=== PATIENT | female | born 1990 | race Caucasian/White ===

== ENCOUNTER 2016-05-11 21:34 | Emergency (ER) | payer OTHER ==
[2016-05-11 21:42] VITALS: BP 147/75
[2016-05-11] MEDS ORDERED: Ibuprofen TAB* 600 MG PO ONE (22:14)
--- NOTE | 2016-05-11 22:29 | ED ---
Lower Extremity - HPI Summary HPI Summary: Pt here w/ Lt toe injury earlier tonight. 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 She has pain in the 3rd, 4th and 5th toes now - worse w/ walking. Denies numbness. No other injuries to report. Has not taken anything for pain. - History of Current Complaint Chief Complaint: EDExtremityLower Stated Complaint: LT FOOT INJURY Time Seen by Provider: 05/11/16 22:14 Hx Obtained From: Patient Hx Last Menstrual Period: Few months - PCOS Pain Intensity: 6 - Allergies/Home Medications Allergies/Adverse Reactions: Allergies Allergy/AdvReac Type Severity Reaction Status Date / Time Penicillins Allergy Unknown Unknown Verified 05/11/16 21:40 Reaction Details Blueberry Flavor Allergy Rash Verified 05/11/16 21:40 Coconut Flavor Allergy Nausea And Verified 05/11/16 21:40 Vomiting PMH/Surg Hx/FS Hx/Imm Hx Previously Healthy: Yes Endocrine/Hematology History: Denies: Hx Anticoagulant Therapy, Hx Blood Disorders, Hx Diabetes, Hx Thyroid Disease, Hx Unexplained Bleeding, Hx Coagulopothy Cardiovascular History: Denies: Hx Congestive Heart Failure, Hx Hypertension Respiratory History: Reports: Hx Asthma Denies: Hx Chronic Obstructive Pulmonary Disease (COPD) GI History: Denies: Hx Ulcer, Other GI Disorders History: Reports: Other Problems/Disorders - PCOS Denies: Hx Renal Disease Psychiatric History: Reports: Hx Anxiety, Hx Post Traumatic Stress Disorder - Surgical History Surgery Procedure, Year, and Place: knee surgery age 4. skin bubble removed from lip 2010. wisdom teeth pulled - Immunization History Date of Tetanus Vaccine: Unk Date of Influenza Vaccine: 12/02 Infectious Disease History: No Infectious Disease History: Denies: Hx Clostridium Difficile, Hx Hepatitis, Hx Human Immunodeficiency Virus (HIV), Hx of Known/Suspected MRSA, Hx Shingles, Hx Tuberculosis, Hx Known/ Suspected VRE, Hx Known/Suspected VRSA, History Other Infectious Disease, Traveled Outside the [place] in Last 30 Days - Family History Known Family History: Positive: Hypertension Negative: Cardiac Disease, Diabetes - Social History Occupation: Employed Part-time Lives: With Family Alcohol Use: Rare Hx Substance Use: No Substance Use Type: Reports: None Smoking Status (MU): Current Every Day Smoker Type: Cigarettes Amount Used/How Often: 1/2 ppd Length of Time of Smoking/Using Tobacco: since age 17 yo Review of Systems Positive: no symptoms reported Positive: Decreased ROM - see HPI Skin: Other - skin is red over cuticle areas Negative: Weakness, Paresthesia, Numbness Psychological: Normal All Other Systems Reviewed And Are Negative: Yes Physical Exam Triage Information Reviewed: Yes Vital Signs On Initial Exam: Initial Vitals Temp Pulse Resp BP Pulse Ox 97.3 F 96 18 147/75 100 05/11/16 21:38 05/11/16 21:38 05/11/16 21:38 05/11/16 21:38 05/11/16 21:38 Vital Signs Reviewed: Yes Appearance: Positive: Well-Appearing, No Pain Distress, Obese Skin: Positive: Warm, Dry - line of erythema over cuticles of 3rd, 4th and 5th toes on Lt foot - no jose cruz bleeding or ecchymosis Head/Face: Positive: Normal Head/Face Inspection Eyes: Positive: Normal, EOMI ENT: Positive: Hearing grossly normal, Pharynx normal Respiratory/Lung Sounds: Positive: Breath Sounds Present Cardiovascular: Positive: Normal, Pulses are Symmetrical in both Upper and Lower Extremities Musculoskeletal: Positive: Limited @ - Toes on Lt foot d/t pain Neurological: Positive: Normal, Sensory/Motor Intact, Alert, Oriented to Person Place, Time, CN Intact II-III Psychiatric: Positive: Normal Diagnostics - Vital Signs Vital Signs Temp Pulse Resp BP Pulse Ox 05/11/16 21:38 97.3 F 96 18 147/75 100 - Laboratory Lab Statement: Any lab studies that have been ordered have been reviewed, and results considered in the medical decision making process. Lower Extremity Course/Dx - Diagnoses Provider Diagnoses: Contusion of left foot including toes Discharge - Discharge Plan Condition: Stable Disposition: HOME Patient Education Materials: Foot Contusion (ED) Forms: *Work Release Referrals: Abdi Chappell MD [Primary Care Provider] - Additional Instructions: Rest, ice, elevate your foot You may take ibuprofen with food for pain and swelling Wear your stiff soled shoe until toe pain resolves. Follow-up with PCP in 1-2 weeks if symptoms persist
--- NOTE | 2016-05-11 22:44 | RAD ---
Indication: Crush injury to the third through fifth toes of the LEFT foot. Comparison: None. Technique: AP and lateral views RIGHT foot. REPORT AND IMPRESSION: Normal articular alignment. Negative for fracture. Mild forefoot soft tissue swelling.
== END 2016-05-11 23:28 | disposition home or self-care (01) ==
LOC: ED 21:34
DX: S90.32XA Contusion of left foot, initial encounter (principal); W22.8XXA Striking against or struck by other objects, initial encounter; Y93.9 Activity, unspecified; Y92.9 Unspecified place or not applicable; F17.210 Nicotine dependence, cigarettes, uncomplicated
CPT/HCPCS: 99281; A9270-GY

== ENCOUNTER 2016-09-28 08:23 | Emergency (ER) | payer OTHER ==
[2016-09-28] MEDS ORDERED: Albuterol/Ipratropium NEB.SOL* Albuterol 2.5 MG/Ipratropium 0.5 MG 3 ML INH ONE (08:45)
[2016-09-28] MEDS ORDERED: predniSONE TAB* 20 MG PO ONE (08:45)
--- NOTE | 2016-09-28 08:49 | ED ---
Respiratory - HPI Summary HPI Summary: 26F presents with asthma attack today. She states that she woke up having issues but would not take her inhaler because would not take it because it was out of date. She states that she started to cough because of it and then she coughed up blood. She states she also has a fever. She has not seen her primary in a while. She denies any chest pain. She states that is is chest tightness rather than SOB. - History of Current Complaint Chief Complaint: EDGeneral Stated Complaint: FEVER/COUGHING UP BLOOD Time Seen by Provider: 09/28/16 08:34 Pain Intensity: 0 Sputum Amount: None - Allergy/Home Medications Allergies/Adverse Reactions: Allergies Allergy/AdvReac Type Severity Reaction Status Date / Time Penicillins Allergy Unknown Unknown Verified 05/11/16 21:40 Reaction Details Blueberry Flavor Allergy Rash Verified 05/11/16 21:40 Coconut Flavor Allergy Nausea And Verified 05/11/16 21:40 Vomiting PMH/Surg Hx/FS Hx/Imm Hx Endocrine/Hematology History: Denies: Hx Anticoagulant Therapy, Hx Blood Disorders, Hx Diabetes, Hx Thyroid Disease, Hx Unexplained Bleeding Cardiovascular History: Denies: Hx Congestive Heart Failure, Hx Hypertension Respiratory History: Reports: Hx Asthma Denies: Hx Chronic Obstructive Pulmonary Disease (COPD) GI History: Denies: Hx Ulcer, Other GI Disorders History: Reports: Other Problems/Disorders - PCOS Denies: Hx Renal Disease Psychiatric History: Reports: Hx Anxiety, Hx Post Traumatic Stress Disorder - Surgical History Surgery Procedure, Year, and Place: knee surgery age 4. skin bubble removed from lip 2010. wisdom teeth pulled - Immunization History Date of Tetanus Vaccine: Unk Date of Influenza Vaccine: 12/02 Infectious Disease History: No Infectious Disease History: Denies: Hx Clostridium Difficile, Hx Hepatitis, Hx Human Immunodeficiency Virus (HIV), Hx of Known/Suspected MRSA, Hx Shingles, Hx Tuberculosis, Hx Known/ Suspected VRE, Hx Known/Suspected VRSA, History Other Infectious Disease, Traveled Outside the [place] in Last 30 Days - Family History Known Family History: Positive: Hypertension Negative: Cardiac Disease, Diabetes - Social History Alcohol Use: Rare Hx Substance Use: No Substance Use Type: Reports: None Smoking Status (MU): Current Every Day Smoker Type: Cigarettes Amount Used/How Often: 1/2 ppd Length of Time of Smoking/Using Tobacco: since age 17 yo Review of Systems Positive: Fever Negative: Chest Pain Positive: Shortness Of Breath, Cough Negative: Abdominal Pain All Other Systems Reviewed And Are Negative: Yes Physical Exam Triage Information Reviewed: Yes Vital Signs On Initial Exam: Initial Vitals Temp Pulse Resp BP Pulse Ox 97.5 F 100 18 135/70 97 09/28/16 08:25 09/28/16 08:25 09/28/16 08:25 09/28/16 08:25 09/28/16 08:25 Vital Signs Reviewed: Yes Appearance: Positive: Well-Appearing Skin: Positive: Warm, Dry Head/Face: Positive: Normal Head/Face Inspection Eyes: Positive: Normal, EOMI, RAFAL, Conjunctiva Clear ENT: Positive: Normal ENT inspection, Pharynx normal, TMs normal Neck: Positive: Supple, Nontender, No Lymphadenopathy Respiratory/Lung Sounds: Positive: Clear to Auscultation, Breath Sounds Present , Other - neg egophony Cardiovascular: Positive: Normal, RRR Diagnostics - Vital Signs Vital Signs Temp Pulse Resp BP Pulse Ox 09/28/16 08:36 20 09/28/16 08:31 97.5 F 100 18 135/70 97 09/28/16 08:25 97.5 F 100 18 135/70 97 - Laboratory Lab Statement: Any lab studies that have been ordered have been reviewed, and results considered in the medical decision making process. - Radiology chest Xray Interpretation: No Acute Changes Radiology Interpretation Completed By: Radiologist Disposition - Course Course Of Treatment: 26F presents with asthma attack today. She states that she woke up having issues but would not take her inhaler because would not take it because it was out of date. She states that she started to cough because of it and then she coughed up blood. She states she also has a fever. She has not seen her primary in a while. She denies any chest pain. She states that is is chest tightness rather than SOB. on exam lungs CTA. gave neb treatment and chest tightness resolved. chest xray normal. gave script for inhaler and steriod. told to follow up with primary. patient understands and agrees with plan. - Differential Dx - Cardiopulmonary Differential Diagnoses - Cardiopulmonary: Asthma, Bronchitis, Lower Resp Infection - Diagnoses Provider Diagnoses: Asthma exacerbation, Cough Discharge - Discharge Plan Condition: Good Disposition: HOME Prescriptions: Albuterol HFA INHALER* [Ventolin HFA Inhaler*] 1 puff INH Q6H PRN #1 mdi PRN Reason: Sob/Wheezing predniSONE TAB* [Deltasone TAB*] 40 mg PO DAILY #8 tab Patient Education Materials: Asthma (ED) Forms: *Work Release Referrals: Abdi Chappell MD [Primary Care Provider] - Additional Instructions: Use inhaler up to two puffs every 4 hours for cough and wheezing Take steroid once a day for 4 more days starting tomorrow 5 days Take Tylenol or ibuprofen for pain every 6 hours Return to ED if develop severe shortness of breath or any new or worsening symptoms
--- NOTE | 2016-09-28 09:34 | RAD ---
Indication: Cough, fever. 2 views the chest including dual energy PA views demonstrate no mediastinal shift. Heart is of normal size and configuration. Lung kraft demonstrate no pleural fluid, pneumonia or pneumothorax. IMPRESSION: No active cardiopulmonary disease is noted.
[2016-09-28 09:59] VITALS: BP 136/79
== END 2016-09-28 09:58 | disposition home or self-care (01) ==
LOC: ED 08:23
DX: J45.901 Unspecified asthma with (acute) exacerbation (principal); R05 Cough; R50.9 Fever, unspecified; R06.02 Shortness of breath; F17.210 Nicotine dependence, cigarettes, uncomplicated
CPT/HCPCS: 71020; 94640; 99282; A9270-GY; J7512